=== PATIENT | female | born 1965 | race Caucasian/White ===

== ENCOUNTER → 2019-07-22 | Outpatient (CLI) | payer BC | LOC: MC.RAD 11:44 | DX: Z12.31 Encounter for screening mammogram for malignant neoplasm of breast (principal) ==

== ENCOUNTER → 2020-07-02 | Outpatient (CLI) | payer BC | LOC: COL.RAD 08:46 | DX: M75.91 Shoulder lesion, unspecified, right shoulder (principal) | CPT/HCPCS: A9585; Q9967 ==

== ENCOUNTER 2021-10-07 15:15 | Outpatient (RCR) | payer BC | END 2021-10-17 | disposition home or self-care (01) | LOC: MKS.ESL.OT | DX: M77.8 Other enthesopathies, not elsewhere classified (principal) ==

== ENCOUNTER 2021-11-15 14:15 | Outpatient (RCR) | payer BC | END 2021-11-17 | disposition home or self-care (01) | LOC: MKS.ESL.OT | DX: M77.8 Other enthesopathies, not elsewhere classified (principal) ==

== ENCOUNTER 2021-12-01 15:45 | Outpatient (RCR) | payer BC | END 2021-12-17 | disposition home or self-care (01) | LOC: MKS.ESL.OT | DX: M77.8 Other enthesopathies, not elsewhere classified (principal); R20.2 Paresthesia of skin ==

== ENCOUNTER → 2022-01-31 15:17 | Outpatient (RCR) | payer BC | END | disposition home or self-care (01) | LOC: MKS.ESL.OT 12-18 15:15 | DX: M77.8 Other enthesopathies, not elsewhere classified (principal) ==

== ENCOUNTER → 2022-02-24 | Outpatient (CLI) | payer BC | LOC: MC.RAD 14:00 | DX: Z12.31 Encounter for screening mammogram for malignant neoplasm of breast (principal) ==

== ENCOUNTER → 2023-09-06 | Outpatient (CLI) | payer BC | LOC: MC.RAD 13:15 | DX: Z12.31 Encounter for screening mammogram for malignant neoplasm of breast (principal) ==